=== PATIENT | female | born 1955 | race Caucasian/White ===

== ENCOUNTER 2016-10-25 19:30 | Emergency (ER) | payer BC, OTHER ==
[2016-10-25 20:04] VITALS: TEMP 98.6
--- NOTE | 2016-10-25 21:11 | ED.PDOC ---
History of Present Illness - General Chief Complaint: Skin/Abrasion/Tear Stated Complaint: spot on left forearm Time Seen by Provider: 10/25/16 20:58 Source: patient, RN notes reviewed, Vital Signs reviewed Exam Limitations: no limitations - History of Present Illness Initial Comments: Patient is a 60 y/o female who just prior to arrival, was at [facility]. She was walking out to her care and had her forearms on the handle of the shopping cart. She went to put the cart up, and her left forearm hurt. When she looked at it, she noted a round lytton of redness on her forearm. She went back into [facility] and showed them what happened, and they instructed her to come to the ED. 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 Timing/Duration: just prior to arrival Severity: mild Location: extremities - left volar forearm Improving Factors: nothing Worsening Factors: other - touch Associated Symptoms: denies symptoms, change in skin texture, edema Allergies/Adverse Reactions: Allergies Aspirin Allergy (Verified 10/25/16 20:04) Celecoxib [From Celebrex] Allergy (Verified 10/25/16 20:04) Codeine Allergy (Verified 10/25/16 20:04) Tramadol Allergy (Verified 10/25/16 20:04) Home Medications: Ambulatory Orders Cephalexin Monohydrate [Keflex] 500 mg PO BID #14 cap 10/25/16 Gabapentin 600 mg PO BEDTIME 10/25/16 Triamcinolone Acetonide (Topic [Triamcinolone Acetonide] 0.1 % TD BID PRN #15 gm 10/25/16 Review of Systems - Review of Systems Constitutional: States: no symptoms reported EENTM: States: no symptoms reported Respiratory: States: no symptoms reported Cardiology: States: no symptoms reported Gastrointestinal/Abdominal: States: no symptoms reported Genitourinary: States: no symptoms reported Musculoskeletal: States: no symptoms reported Skin: States: see HPI Neurological: States: no symptoms reported Endocrine: States: no symptoms reported Hematologic/Lymphatic: States: no symptoms reported All other Systems: Reviewed and Negative Past Medical History (General) - Patient Medical History Hx Seizures: No Hx Stroke: No Hx Dementia: No Hx Asthma: No Hx of COPD: No Hx Cardiac Disorders: No Hx Congestive Heart Failure: No Hx Pacemaker: No Hx Hypertension: No Hx Thyroid Disease: No Hx Diabetes: No Hx Gastroesophageal Reflux: No Hx Renal Disease: No Hx Cancer: No Hx of HIV: No Hx Hepatitis C: No Hx MRSA: No Surgical History: Hysterectomy - Vaccination History Hx Tetanus, Diphtheria Vaccination: Yes Hx Influenza Vaccination: Yes Hx Pneumococcal Vaccination: No Immunizations Up to Date: Yes - Social History Hx Tobacco Use: No Hx Chewing Tobacco Use: No Hx Alcohol Use: No Hx Substance Use: No Hx Substance Use Treatment: No Hx Depression: No Feels Threatened In Home Enviroment: No Feels Threatened In a Relationship: No Hx Physical Abuse: No Hx Emotional Abuse: No Hx Suspected Abuse: No - Activities of Daily Living Hospice Agency (if applicable):: None Family Medical History - Family History Mother Family History: No Known Name: Mumtaz Ace Age (years): 86 Living Status: Still Living Hx Family Asthma: No Hx Family Congestive Heart Failure: No Hx Family Hypertension: No Hx Family Stroke: No Hx Cardiac Disease: No Hx Family Diabetes: No Hx Family Cancer: No Physical Exam - Physical Exam General Appearance: Alert, Comfortable, No apparent distress Eyes, Ears, Nose, Throat Exam: normal ENT inspection Neck: supple Respiratory: no respiratory distress Extremity: normal range of motion, non-tender, normal inspection Neurologic: alert, normal mood/affect, oriented x 3 Skin Exam: other - A 1.5 diameter lytton of raised erythema with central clearing on the left volar forearm. Skin Problem Location: upper extremities Skin Character: erythema Lymphatic: no adenopathy Departure - Departure Clinical Impression: Chemical burn ICD-10 Supporting Text: Left upper forearm Time of Disposition: 21:18 Disposition: Discharge to Home or Self Care Departure Forms: ED Discharge - Pt. Copy, Patient Portal Self Enrollment Diet: resume usual diet Prescriptions: Cephalexin Monohydrate [Keflex] 500 mg PO BID #14 cap Triamcinolone Acetonide (Topic [Triamcinolone Acetonide] 0.1 % TD BID PRN #15 gm PRN Reason: Rash Home Medications: Ambulatory Orders Cephalexin Monohydrate [Keflex] 500 mg PO BID #14 cap 10/25/16 Gabapentin 600 mg PO BEDTIME 10/25/16 Triamcinolone Acetonide (Topic [Triamcinolone Acetonide] 0.1 % TD BID PRN #15 gm 10/25/16 Additional Instructions: Follow up with PCP if rash worsens or looks infected. Start antibiotics for any signs of infection but be sure to follow up with your PCP right away. May use antibiotic ointment on area. Keep area clean and dry.
[2016-10-25 21:39] VITALS: BP 128/84; O2SAT 98
== END 2016-10-25 21:39 | disposition home or self-care (01) ==
LOC: ER 19:30
DX: T22.412A Corrosion of unspecified degree of left forearm, initial encounter (principal); Z88.6 Allergy status to analgesic agent; Z88.8 Allergy status to other drugs, medicaments and biological substances; Z96.652 Presence of left artificial knee joint; Y92.59 Other trade areas as the place of occurrence of the external cause